=== PATIENT | female | born 1995 | race African-American/Black ===

== ENCOUNTER 2016-08-15 01:37 | Emergency (ER) | payer OTHER ==
--- NOTE | ~2016-08-15 | EKG ---
PATIENT: THONG NORMAN UNIT #: [id number] Ventricular Rate: 65 BPM Atrial Rate: 65 BPM P-R Interval: 174 ms QRS Duration: 74 ms Q-T Interval: 388 ms QTC Calculation(Bezet): 403 ms P [place]: 53 degrees Calculated R [place]: 59 degrees Calculated T [place]: 33 degrees Diagnosis Line: Normal sinus rhythm Diagnosis Line: Normal ECG Diagnosis Line: No previous ECGs available Diagnosis Line: Confirmed by SALEEM SWIFT MD ([id number]) on 08/18/2016 Diagnosis Line: 7:19:20 AM INTERPRETING MD: JAMISON BLISS
--- NOTE | ~2016-08-15 | CR72 ---
[facility] A Service of [facility] & [facility] RADIOLOGY TEXT RESULTS PATIENT: THONG NORMAN LOCATION: [facility] : [birth year] UNIT #: [id number] AGE: [address]: Ronnie Ramos MD SEX: F ORDER DR: [id number] [facility] [address] [place], [place] [address] [id number] E MR#: [id number] Acc #: [id number] NAME: THNOG NORMAN : 1995 SEX: F STUDY DATE/TIME: 08/15/2016 1:24 UNIT: [facility] ROOM: STUDY DESCRIPTION: CR Chest Single View Portable Attending Physician: Ronnie Ramos M.D. Ordering Physician: Ronnie Ramos M.D. Primary Care Physician: No Primary Care Physician MEDICAL IMAGING REPORT This report is preliminary unless electronic signature is present EXAM AP portable chest. DATE 08/15/2016 HISTORY Chest pain with movement for 1 day. No documented injury. FINDINGS Heart size appears mildly enlarged which may be accentuated by the portable technique. No acute airspace disease. No pleural effusion or pneumothorax or acute osseous abnormality. Dictated by... Yady Chirions M.D. THIS IS AN ELECTRONICALLY VERIFIED REPORT Yady Chirinos M.D. at 08/19/2016 8:37 AM YONNY/lena TD: 08/15/2016 10:08 JOB #: [id number] MEDICAL IMAGING REPORT Page 1 of 1 COPY
[2016-08-15 01:28] LABS: BASOPHIL% 0.5 % (0-2.5); EOSINOPHIL# 0.2 X10e3 (0-0.7); EOSINOPHIL% 2.4 % (0.0-7.0); HEMATOCRIT 36.9 % (35.0-45.0); HEMOGLOBIN 11.7 gm/dL (12.0-16.0); LYMPHOCYTE# 2.4 X10e3 (1.0-3.5); LYMPHOCYTE% 36.4 % (17.0-45.0); MEAN CELL VOLUME 77.7 FL (83-96); MEAN CORPUSCULAR HEMOGLOBIN 24.6 PG (28-34); MEAN CORPUSCULAR HGB CONC 31.7 g/dL (30-36); MEAN PLATELET VOLUME 8.9 FL (6.5-11.5); MONOCYTE# 0.4 X10e3 (0-1.0); MONOCYTE% 6.6 % (3.0-12.0); NEUTROPHIL# 3.6 X10e3 (1.5-7.1); NEUTROPHIL% 54.1 % (40-75); PLATELET COUNT 204 X10e3 (140-420); RED BLOOD COUNT 4.75 X10e (3.90-5.30); RED CELL DISTRIBUTION WIDTH 14.3 % (11.0-15.5); WHITE BLOOD COUNT 6.6 X10e3 (4.0-10.5)
[2016-08-15 01:29] LABS: DIFF IND NO
[2016-08-15 01:41] LABS: PARTIAL THROMBOPLASTIN TIME 24.3 SECONDS (23.5-31.3); PROTHROMBIN TIME (PATIENT) 10.7 SECONDS (9.6-11.5)
[2016-08-15 01:43] LABS: POC - CKMB <1.0 ng/mL (0.0-7.9); POC - TROPONIN <0.05 ng/mL (<=0.05)
[2016-08-15 01:51] LABS: BLOOD UREA NITROGEN 19 mg/dL (9-23); BUN/CREATININE RATIO 23.75; CALCIUM SERUM 9.5 mg/dL (8.4-10.2); CARBON DIOXIDE 27 mmol/L (22-31); CHLORIDE 106 mmol/L (100-111); CREATININE SERUM 0.8 mg/dL (0.6-1.4); GLOM FILT RATE Estimated ABOVE60 mL/min (>60); GLUCOSE FASTING 90 mg/dL (70-110); POTASSIUM 4.1 mmol/L (3.5-5.1); SODIUM 138 mmol/L (135-145)
== END 2016-08-15 03:13 | disposition home or self-care (01) ==
LOC: CED 01:37
PROVIDERS: Emergency Medicine
DX: R09.1 Pleurisy (principal); R07.9 Chest pain, unspecified
CPT/HCPCS: 36415; 71010; 80048; 82553; 84484; 84703; 85025; 85379; 85610; 85730; 93005; 96374; 99284; J1885